=== PATIENT | female | born 1945 | race Caucasian/White ===

== ENCOUNTER 2020-02-18 22:26 | Emergency (ER) | payer MEDICARE, OTHER ==
[~2020-02-18] VITALS: Ht 162.6 cm; Wt 71.0 kg
[~2020-02-18 22:26] MED LIST: ALBU2.5V8 IH; ALLO100T PO; ALLO300T PO; ASPI-630 PO; CALC500T30 PO; CETI10TA24 PO; CIPR500T94 PO; CRAN500C6 PO; FERR325T58 PO; GLUC1TAB71 PO; HYDR-2765 PO; LANS30CA66 PO; METO50TA29 PO; MULT-445 PO; ONDA4TAB10 SL; Oxycodone Hcl/Acetaminophen PO; SERT50TA8 PO; SIMV10TA15 PO; SIMV40TA18 PO
--- NOTE | 2020-02-18 23:06 | PHYS DOC ---
Past Medical History Past Medical History: Arthritis, GERD, High Cholesterol, Hypertension, IA, UTI, Other Additional Past Medical Histor: hiatal hernia; gout Past Surgical History: Appendectomy, Knee Replacement, Tonsillectomy, Other Additional Past Surgical Histo: colonoscopy; right axilla sweat glands; Smoking Status: Never Smoker Alcohol Use: None Drug Use: None General Adult EDM: Chief Complaint: RAPID HEART RATE HPI: HPI: Patient is a 74 year old female who presents with a 2-day history of intermittent heart racing. Patient describes palpitations as her heart beating fast but not necessarily irregular. Patient has lightheadedness and some shortness of breath when these episodes occur. Patient denies any chest pain. Patient denies any recent fevers, cough, vomiting or diarrhea. Patient states she is on antibiotic for urinary tract infection but denies any other changes in medications. Patient says symptoms are not worse or better with any particular activity or movement. Review of Systems: Review of Systems: Constitutional: Denies fever or chills. [] Eyes: Denies change in visual acuity. [] HENT: Denies nasal congestion or sore throat. [] Respiratory: Denies cough or but has mild shortness of breath. These episodes occur [] Cardiovascular: Denies chest pain but complains of palpitations GI: Denies abdominal pain, nausea, vomiting, bloody stools or diarrhea. [] : Denies dysuria. [] Musculoskeletal: Denies back pain or joint pain. [] Integument: Denies rash. [] Neurologic: Denies headache, focal weakness or sensory changes. [] Endocrine: Denies polyuria or polydipsia. [] Lymphatic: Denies swollen glands. [] Psychiatric: Denies depression or anxiety. [] Heart Score: HEART Score for Chest Pain: HEART Score for Chest Pain Response (Comments) Value History Slighlty/Non-Suspicious 0 ECG Nonspecific Repolarizatio 1 Age > 65 2 Risk Factors 1 or 2 Risk Factors 1 Troponin < Normal Limit 0 Total 4 Risk Factors: Risk Factors: DM, Current or recent (<one month) smoker, HTN, HLP, family history of CAD, obesity. Risk Scores: Score 0 - 3: 2.5% MACE over next 6 weeks - Discharge Home Score 4 - 6: 20.3% MACE over next 6 weeks - Admit for Clinical Observation Score 7 - 10: 72.7% MACE over next 6 weeks - Early Invasive Strategies Allergies: Allergies: Allergies Coded Allergies Type Severity Reaction Last Updated Verified egg Adverse Reaction Intermediate Nausea and Vomiting 07/29/14 No morphine Adverse Reaction Intermediate hallucinations 07/29/14 No sulfamethoxazole Adverse Reaction Intermediate Nausea and Vomiting 07/29/14 No trimethoprim Adverse Reaction Intermediate Nausea and Vomiting 07/29/14 No Physical Exam: PE: Constitutional: Well developed, well nourished, no acute distress, non-toxic appearance. [] HENT: Normocephalic, atraumatic, bilateral external ears normal, no trismus nose normal. [] Eyes: PERRLA, EOMI, conjunctiva normal, no discharge. [] Neck: Normal range of motion, no tenderness, supple, no stridor. [] Cardiovascular:Heart rate regular rhythm, peripheral pulses intact Lungs & Thorax: No respiratory distress Abdomen: soft, no tenderness, no masses, no pulsatile masses. [] Skin: Warm, dry, no erythema, no rash. [] Back: No tenderness, no CVA tenderness. [] Extremities: No tenderness, no cyanosis, no clubbing, ROM intact, no edema. [] Neurologic: Alert and oriented X 3, normal motor function, normal sensory function, no focal deficits noted. [] Psychologic: Affect normal, judgement normal, mood normal. [] Current Patient Data: Vital Signs: Vital Signs Date Time Temp Pulse Resp B/P (MAP) Pulse Ox O2 Delivery O2 Flow Rate FiO2 02/18/20 22:58 98.4 65 16 121/60 (80) 96 Room Air 98.4 EKG: EKG: [] EKG interpreted by me normal sinus rhythm with a rate of 70 left axis deviation PACs nonspecific ST changes first-degree AV block normal QTC Radiology/Procedures: Radiology/Procedures: [][facility] [address] [place] [address] IMAGING REPORT Signed PATIENT: DINA OHARA ACCOUNT: [id number] : 1945 LOCATION: ER AGE: 74 SEX: F EXAM STATUS: REG ER ORD. PHYSICIAN: RAHEEL VELASQUEZ MD REASON: PALPITATIONS PROCEDURE: PORTABLE CHEST 1V INDICATION: Reason: PALPITATIONS / Spl. Instructions: / History: COMPARISON: None. FINDINGS: Single view of chest obtained. Hypoexpanded exam. Cardiac silhouette near upper limits of normal. There are some surgical clips projecting over the right lower chest. No focal airspace consolidation. IMPRESSION: * No focal airspace consolidation or edema. Electronically signed by: Anupam Jimenez MD (02/18/2020 11:29 PM) [id number] DICTATED and SIGNED BY: ANUPAM JIMENEZ MD DATE: 02/18/202328 Course & Med Decision Making: Course & Med Decision Making Pertinent Labs and Imaging studies reviewed. (See chart for details) [] Patient reassessed at 12:15 AM. No arrhythmias heart rates normal in sinus. Work-up is reassuring. Patient resting comfortably. Patient will give referral to [facility] department end finder for outpatient follow-up. Return precautions given. Patient denies chest pain and has a negative troponin with symptoms for 2 days. Doubt acute coronary syndrome. Dragon Disclaimer: Dragon Disclaimer: This electronic medical record was generated, in whole or in part, using a voice recognition dictation system. Departure Departure Impression: Primary Impression: Palpitations Disposition: HOME, SELF-CARE Referrals: MARINO VOSS MD (PCP) GINNY QUINONEZ MD 2-3 days Patient Instructions: Palpitations Additional Instructions: EMERGENCY DEPARTMENT GENERAL DISCHARGE INSTRUCTIONS THANK YOU for coming to [facility] Emergency Department (ED) today and trusting us with your care. We trust that you had a positive experience in our Emergency Department. If you wish to speak to the department Management you can contact the twisting department end finder at . YOUR FOLLOW UP INSTRUCTIONS ARE FOLLOWS: Do you have a private doctor? If you do not have a private doctor, please ask for a resource list of physicians or clinics that may be able to assist you with follow up care. The Emergency Physician has interpreted your x-rays. The X-ray specialist will also review them. If there is a change in the findings you will be notified in 48 hours when at all possible. A lab test or lab culture may have been done, your results will be reviewed and you will be notified if you need a change in treatment. ADDITIONAL INSTRUCTIONS AND INFORMATION Your care today has been supervised by a physician who is specially trained in emergency care. Many problems require more than one evaluation for a complete diagnosis and treatment. We recommend that you schedule your follow up appointment as recommended to ensure complete treatment of your illness or injury. If you are unable to obtain follow up care and continue to have a problem, or if your condition worsens we recommend that you return to the ED. We are not able to safely determine your condition over the phone nor are we able to give sound medical advice over the phone. For these safety reasons, if you call for medical advice we will ask you to come to the ED for further evaluation If you have any questions regarding these discharge instructions please call the ED at . SAFETY INFORMATION In the interest of safety, wellness, and injury prevention; we encourage you to wear your seatbelt, if you smoke; quit smoking, and we encourage your family to use protective helmet for bicycling and other sporting events that present an increased risk for head injury. IF YOUR SYMPTOMS WORSEN OR NEW SYMPTOMS DEVELOP, OR YOU HAVE CONCERNS ABOUT YOUR CONDITION; OR IF YOUR CONDITION WORSENS WHILE YOU ARE WAITING FOR YOUR FOLLOW UP APPOINTMENT; EITHER CONTACT YOUR PRIMARY CARE DOCTOR, THE PHYSICIAN WHOSE NAME AND NUMBER YOU WERE GIVEN, OR RETURN TO THE ED IMMEDIATELY. Justicifation of Admission Dx: Justifications for Admission: Justification of Admission Dx: N/A RAHEEL VELASQUEZ MD Feb 18, 2020 23:06
[2020-02-18 23:25] LABS: BASO # 0.1 x10^3/uL (0.0-0.2); BASO % 1 % (0-3); EOS # 0.1 x10^3/uL (0.0-0.7); EOS % 1 % (0-3); HEMATOCRIT 43.1 % (36.0-47.0); HEMOGLOBIN 14.6 g/dL (12.0-15.5); LYMPH # 2.3 x10^3/uL (1.0-4.8); LYMPH % 32 % (24-48); MEAN CORPUSCULAR HEMOGLOBIN 30 pg (25-35); MEAN CORPUSCULAR HGB CONC 34 g/dL (31-37); MEAN CORPUSCULAR VOLUME 88 fL (79-100); MONO # 0.5 x10^3/uL (0.0-1.1); MONO % 8 % (0-9); NEUT # 4.3 x10^3/uL (1.8-7.7); NEUT % 58 % (31-73); PLATELET COUNT 146 x10^3/uL (140-400); RED BLOOD COUNT 4.91 x10^6/uL (3.50-5.40); RED CELL DISTRIBUTION WIDTH 13.8 % (11.5-14.5); WHITE BLOOD COUNT 7.3 x10^3/uL (4.0-11.0)
--- NOTE | 2020-02-18 23:32 | RAD ---
INDICATION: Reason: PALPITATIONS / Spl. Instructions: / History: COMPARISON: None. FINDINGS: Single view of chest obtained. Hypoexpanded exam. Cardiac silhouette near upper limits of normal. There are some surgical clips projecting over the right lower chest. No focal airspace consolidation. IMPRESSION: * No focal airspace consolidation or edema. Electronically signed by: Ghulam Khan MD (02/18/2020 11:29 PM) [id number]
[2020-02-18 23:51] LABS: CREATININE 0.9 mg/dL (0.6-1.0); GFR 61.4; POTASSIUM 4.6 mmol/L (3.5-5.1)
[2020-02-18 23:57] LABS: ALBUMIN 3.6 g/dL (3.4-5.0); TOTAL BILIRUBIN 0.5 mg/dL (0.2-1.0); TOTAL PROTEIN 7.1 g/dL (6.4-8.2)
[2020-02-19 00:25] VITALS: BP 86/60
--- NOTE | 2020-02-19 08:04 | EKG ---
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
== END 2020-02-19 00:33 | disposition home or self-care (01) ==
LOC: ER 22:26
DX: R00.2 Palpitations (principal); R42 Dizziness and giddiness; R06.02 Shortness of breath; R00.0 Tachycardia, unspecified; K21.9 Gastro-esophageal reflux disease without esophagitis; E78.00 Pure hypercholesterolemia, unspecified; I10 Essential (primary) hypertension; I25.2 Old myocardial infarction; M10.9 Gout, unspecified; Z98.890 Other specified postprocedural states; Z88.1 Allergy status to other antibiotic agents; Z88.2 Allergy status to sulfonamides; Z88.5 Allergy status to narcotic agent; Z91.012 Allergy to eggs
CPT/HCPCS: 36415; 71045; 80053; 83880; 84443; 84484; 85025; 93005; 99285-25